=== PATIENT | female | born 1995 | race Two or more races ===

== ENCOUNTER 2017-01-24 12:15 | Emergency (ER) | payer SELFPAY ==
[~2017-01-24] VITALS: Ht 152.4 cm; Wt 68.0 kg
[2017-01-24 13:16] LABS: BILIRUBIN,URINE NEGATIVE (NEG); GLUCOSE,URINE NEGATIVE (NEG); NITRITE,URINE NEGATIVE (NEG); PH,URINE 6.5; PROTEIN,URINE NEGATIVE (NEG-TRACE); UROBILINOGEN,URINE 0.2 mg/dL (0.2 mg/dL)
[2017-01-24 13:25] LABS: BACTERIA,URINE 0 /HPF (0-FEW); RBC,URINE 0 /HPF (0-2); SQUAMOUS EPITHELIAL CELL,UR FEW /LPF; WBC,URINE 0 /HPF (0-4)
--- NOTE | 2017-01-24 14:32 | PHYS DOC ---
Past Medical History Past Medical History: No Pertinent History Past Surgical History: No Surgical History Alcohol Use: None Drug Use: None Adult General Chief Complaint Chief Complaint: VAGINAL BLEEDING HPI HPI Patient is a 21 year old female who presents with vaginal bleeding in . Bleeding started yesterday evening, no associated pain or cramping. , had positive home test, + test at [facility] this morning. No care, LMP was 11/08, today make 10 week 6 days. Review of Systems Review of Systems Constitutional: Denies fever or chills [] Eyes: Denies change in visual acuity, redness, or eye pain [] HENT: Denies nasal congestion or sore throat [] Respiratory: Denies cough or shortness of breath [] Cardiovascular: Denies chest pain GI: Denies abdominal pain, nausea, vomiting, bloody stools or diarrhea [] : Denies dysuria or hematuria [] Musculoskeletal: Denies back pain or joint pain [] Integument: Denies rash or skin lesions [] Neurologic: Denies headache, focal weakness or sensory changes [] Allergies Allergies Allergies Coded Allergies Type Severity Reaction Last Updated Verified No Known Drug Allergies 01/24/17 No Physical Exam Physical Exam Constitutional: Well developed, well nourished, no acute distress, non-toxic appearance. [] HENT: Normocephalic, atraumatic, bilateral external ears normal, oropharynx moist, no oral exudates, nose normal. [] Eyes: PERRLA, EOMI, conjunctiva normal, no discharge. [] Neck: Normal range of motion, no tenderness, supple, no stridor. [] Cardiovascular:Heart rate regular with regular rhythm, no murmur [] Lungs & Thorax: Bilateral breath sounds clear to auscultation, no wheeze or crackles Abdomen: Bowel sounds normal, soft, no tenderness, no masses, no pulsatile masses. Pelvis: mild vag bleeding, no pooling of blood, closed cervix, no CMT, no adnexal ttp or mass appreciated. Skin: Warm, dry, no erythema, no rash. [] Back: No tenderness, no CVA tenderness. [] Extremities: No tenderness, no cyanosis, no clubbing, ROM intact, no edema. [] Neurologic: Alert and oriented X 3, normal motor function, normal sensory function, no focal deficits noted. [] Psychologic: Affect normal, judgement normal, mood normal. [] Current Patient Data Vital Signs Vital Signs Date Time Temp Pulse Resp B/P (MAP) Pulse Ox O2 Delivery O2 Flow Rate FiO2 01/24/17 15:45 81 16 118/63 (81) 100 Room Air 01/24/17 12:40 98.2 98.2 Lab Values Laboratory Tests Test 01/24/17 11:45 01/24/17 12:35 01/24/17 13:00 POC Urine HCG, Qualitative Hcg positive (Negative) Urine Collection Type Unknown Urine Color Yellow Urine Clarity Clear Urine pH 6.5 Urine Specific [place] 1.010 Urine Protein Negative mg/dL (NEG-TRACE) Urine Glucose (UA) Negative mg/dL (NEG) Urine Ketones (Stick) Negative mg/dL (NEG) Urine Blood Large (NEG) Urine Nitrite Negative (NEG) Urine Bilirubin Negative (NEG) Urine Urobilinogen Dipstick 0.2 mg/dL (0.2 mg/dL) Urine Leukocyte Esterase Negative (NEG) Urine RBC 0 /HPF (0-2) Urine WBC 0 /HPF (0-4) Urine Squamous Epithelial Cells Few /LPF Urine Bacteria 0 /HPF (0-FEW) Urine Mucus Slight /LPF Maternal Serum HCG Beta Subunit 16727 mIU/mL (0-6) H Microbiology 01/24/17 Wet Prep - Final, Complete EKG EKG [] Radiology/Procedures Radiology/Procedures OB US:IMPRESSION: 1. 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 2. Small gestational sac within the right uterine canal without evidence of the yolk sac or pole. Sonographic follow-up is suggested to determine if this is a viable . 3. Small right subchorionic hemorrhage. 4. Small left ovarian cyst. Course & Med Decision Making Course & Med Decision Making Pertinent Labs and Imaging studies reviewed. (See chart for details) RH +, no pain, no clear UTI. OB US ordered. Pt still without pain. Discussed the US results with the patient and the need for close monitoring and repeat US. She was to return immediately to the ER if she developed pain or other symptoms, such as lightheadedness or weakness. Dragon Disclaimer Dragon Disclaimer This electronic medical record was generated, in whole or in part, using a voice recognition dictation system. Departure Departure Impression: Primary Impression: Vaginal bleeding in Disposition: HOME, SELF-CARE Condition: STABLE Referrals: NO PCP (PCP) ALDAIR STRAUSS MD January 24, 2017 14:32
--- NOTE | 2017-01-24 15:34 | RAD ---
Obstetrical ultrasound, 01/24/2017: History: Positive test, spotting Transabdominal and transvaginal scans were obtained. The uterus demonstrates an abnormal configuration with right and left central uterine canals. These extend low into the uterus in a pattern suggesting a didelphic uterus. A bicornuate uterus is also a possibility. There are heterogeneous echoes within the right uterine canal best seen on the transvaginal scans. This includes a cystic appearing structure measuring approximately 1.5 cm. It has an echogenic rim suggestive of a gestational sac. No definite yolk sac or pole is seen within this structure. This is not necessarily abnormal with a gestational sac of this small size, however, the irregularity of the rim of the gestational sac does raise questions as to the viability of this . There is an adjacent hypoechoic area suggesting a small subchorionic hemorrhage. The left central uterine echo complex is unremarkable, measuring 5 mm in AP dimension. The right ovary is of normal size. There is a 1.8 cm cyst in the left ovary. The adnexal regions are otherwise unremarkable. No free fluid is evident in the pelvis. IMPRESSION: 1. 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 2. Small gestational sac within the right uterine canal without evidence of the yolk sac or pole. Sonographic follow-up is suggested to determine if this is a viable . 3. Small right subchorionic hemorrhage. 4. Small left ovarian cyst.
[2017-01-24 15:45] VITALS: BP 118/63
== END 2017-01-24 15:45 | disposition home or self-care (01) ==
LOC: ER 12:15
DX: O46.91 Antepartum hemorrhage, unspecified, first trimester (principal)
CPT/HCPCS: 36415; 76801; 76817; 81001; 84702; 84703; 86850; 86900; 86901; 87491; 87591; 99285; Q0111; 81025

== ENCOUNTER 2018-06-19 03:39 | Inpatient (IN) | payer OTHER ==
[2018-06-19 06:15] VITALS: BP 94/48
[2018-06-19 08:46] LABS: BASO % 0 % (0-3); EOS % 0 % (0-3); HEMATOCRIT 32.4 % (36.0-47.0); HEMOGLOBIN 11.3 g/dL (12.0-15.5); LYMPH # 1.2 x10^3/uL (1.0-4.8); LYMPH % 6 % (24-48); MEAN CORPUSCULAR HEMOGLOBIN 30 pg (25-35); MEAN CORPUSCULAR HGB CONC 35 g/dL (31-37); MEAN CORPUSCULAR VOLUME 87 fL (79-100); MONO # 0.6 x10^3/uL (0.0-1.1); MONO % 3 % (0-9); NEUT # 17.8 x10^3uL (1.8-7.7); NEUT % 90 % (31-73); PLATELET COUNT 236 x10^3/uL (140-400); RED BLOOD COUNT 3.74 x10^6/uL (3.50-5.40); RED CELL DISTRIBUTION WIDTH 13.2 % (11.5-14.5); WHITE BLOOD COUNT 19.7 x10^3/uL (4.0-11.0)
--- NOTE | 2018-06-19 09:16 | PDOC ---
GENERAL General: 23 yrs old female 5 months and went to [facility] in [facility] and had Miscarriage in Clinic Seen by and had removal of Placenta and Transfered here for Observation for Bleeding . VITAL SIGNS Vital Signs: Vital Signs Date Time Temp Pulse Resp B/P (MAP) Pulse Ox O2 Delivery O2 Flow Rate FiO2 06/19/18 06:15 98.3 99 16 94/48 (63) 99 Room Air 98.3 ALLERGIES Allergies: Allergies Coded Allergies Type Severity Reaction Last Updated Verified No Known Drug Allergies 01/24/17 No LAB Lab: Laboratory Tests Test 06/19/18 08:15 White Blood Count 19.7 x10^3/uL (4.0-11.0) Red Blood Count 3.74 x10^6/uL (3.50-5.40) Hemoglobin 11.3 g/dL (12.0-15.5) Hematocrit 32.4 % (36.0-47.0) Mean Corpuscular Volume 87 fL (79-100) Mean Corpuscular Hemoglobin 30 pg (25-35) Mean Corpuscular Hemoglobin Concent 35 g/dL (31-37) Red Cell Distribution Width 13.2 % (11.5-14.5) Platelet Count 236 x10^3/uL (140-400) Neutrophils (%) (Auto) 90 % (31-73) Lymphocytes (%) (Auto) 6 % (24-48) Monocytes (%) (Auto) 3 % (0-9) Eosinophils (%) (Auto) 0 % (0-3) Basophils (%) (Auto) 0 % (0-3) Neutrophils # (Auto) 17.8 x10^3uL (1.8-7.7) Lymphocytes # (Auto) 1.2 x10^3/uL (1.0-4.8) Monocytes # (Auto) 0.6 x10^3/uL (0.0-1.1) Eosinophils # (Auto) 0.0 x10^3/uL (0.0-0.7) Basophils # (Auto) 0.0 x10^3/uL (0.0-0.2) ASSESSMENT & PLAN A&P Vital signs stable. No hemorrhage noted Pelvic exam shows uterus Involuting. No Clots seen .Moderate Vaginal bleeding noted. Pt Stable to go home . Hg 11.3G Pt has to call her Ob doctor and make Appt for followup care. MAXI SMITH MD Jun 19, 2018 09:16
[2018-06-19 11:36] VITALS: BP 91/47
[2018-06-19 12:30] LABS: % BANDS 5 % (0-9); % LYMPHS 8 % (24-48); % MONOS 6 % (0-10); % SEGS 81 % (35-66); PLT ESTIMATE ADEQUATE (ADEQUATE)
== END 2018-06-19 15:08 | disposition home or self-care (01) | DRG 776 ==
LOC: 3 NORTH 06:08
PROVIDERS: ADMIT Obstetrics & Gynecology; ATTEND Obstetrics & Gynecology
DX: O72.1 Other immediate postpartum hemorrhage (principal)
CPT/HCPCS: 36415; 85007; 85025; 86850; 86900; 86901